=== PATIENT | male | born 1955 | race Two or more races ===

== ENCOUNTER 2018-05-25 09:17 | Day surgery (SDC) | payer OTHER ==
[~2018-05-25 09:17] MED LIST: ATENOLOL25 MG PO; CITALOPRAM HBR10 MG PO; LORATADINE10 M2 PO; OMEPRAZOLE20 MG PO; SIMVASTATIN10 MG PO; SYNTHROID100 MCG PO; TAMS0.4C PO; UROXATRAL10 MG PO
[2018-05-25] MEDS ORDERED: PERCOCET 5-3251 EACH PO (14:00)
[2018-05-25] MEDS ORDERED: COLACE100 MG PO (14:00)
== END 2018-05-25 19:40 | disposition home or self-care (01) ==
LOC: CIR.AMB 09:17
DX: K64.4 Residual hemorrhoidal skin tags (principal)